=== PATIENT | female | born 1965 | race African-American/Black ===

== ENCOUNTER 2017-08-31 07:27 | Emergency (ER) | payer BC ==
[~2017-08-31] VITALS: Ht 137.2 cm; Wt 57.1 kg
--- NOTE | ~2017-08-31 | EKG ---
[place] [address] [address] [facility] [place] [address] ELECTROCARDIOGRAM REPORT Name: SOL RICHARD Santos Room #: [facility]#: [id number] Admission: 08/31/17 Attend Phys: Discharge: Date of : 61 Report #: [id number] THIS REPORT FOR: //name// 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
[2017-08-31 08:47] LABS: ABSOLUTE NEUTROPHILS 2.4 thou/uL (1.4-8.2); BASOPHILS 0.9 % (0.0-2.0); EOSINOPHILS 2.6 % (0.0-3.0); HEMATOCRIT 44.8 % (37.0-47.0); HEMOGLOBIN 14.8 gm/dL (12.0-15.0); LYMPHOCYTES 39.3 % (24.0-44.0); MCH 26.3 pg (26.0-34.0); MCV 79.6 fL (80.0-100.0); MONOCYTES 10.8 % (1.0-8.0); PLATELET COUNT 292 thou/uL (150-400); POLYS 46.4 % (36.0-66.0); RBC 5.63 mil/uL (4.20-5.00); RDW 15.4 % (10.5-14.5); WBC 5.1 thou/uL (4.0-11.0)
[2017-08-31] MEDS ORDERED: VITAMIN D1000 UNI1 PO (08:50)
[2017-08-31 08:57] LABS: ANION GAP 6 mmol/L (7-16); BUN 14 mg/dL (7-18); CALCIUM 9.8 mg/dL (8.5-10.1); CHLORIDE 105 mmol/L (98-107); CO2 29 mmol/L (21-32); CREATININE 0.6 mg/dL (0.6-1.0); GLUCOSE 103 mg/dL (74-106); POTASSIUM 4.1 mmol/L (3.5-5.1); SODIUM 140 mmol/L (136-145)
[2017-08-31 09:06] LABS: TROPONIN-I < 0.04 ng/mL (<0.06)
[2017-08-31] MEDS ORDERED: NORVASC5 MG PO (09:43)
[2017-08-31] MEDS ORDERED: NAPROSYN500 MG PO (09:43)
== END 2017-08-31 10:16 | disposition home or self-care (01) ==
LOC: ER 07:27
PROVIDERS: Emergency Medicine
DX: R03.0 Elevated blood-pressure reading, without diagnosis of hypertension (principal); M79.602 Pain in left arm

== ENCOUNTER 2017-08-31 11:09 | Emergency (ER) | payer BC ==
[~2017-08-31] VITALS: Ht 137.2 cm; Wt 57.1 kg
[~2017-08-31 11:09] MED LIST: NAPROSYN500 MG PO; NORVASC5 MG PO; VITAMIN D1000 UNI1 PO
== END 2017-08-31 13:04 | disposition home or self-care (01) ==
LOC: ER 11:09
DX: F43.0 Acute stress reaction (principal); R51 Headache; I10 Essential (primary) hypertension